=== PATIENT | female | born 1935 | race Caucasian/White ===

== ENCOUNTER 2017-06-30 07:25 | Emergency (ER) | payer MEDICARE ==
[2017-06-30] MEDS ORDERED: ONDANSETRON PF 4 MG/2 ML VIAL. (07:58)
[2017-06-30] MEDS: ONDANSETRON ODT 4 MG TAB.RAPDIS. PO (08:00)
[2017-06-30] MEDS: ONDANSETRON PF 4 MG/2 ML VIAL. IV (08:06)
[2017-06-30 08:22] LABS: ISTAT INR 3.1 (0.9-1.1); ISTAT PT 35.1 Sec (10.0-14.0)
[2017-06-30] MEDS: IV NORMAL SALINE 1000ML BAG 1,000 ML IV ×2 (08:25→08:41)
[2017-06-30] MEDS: PANTOPRAZOLE IV PUSH 40 MG VIAL. IVP (08:25)
[2017-06-30 08:26] LABS: ADD MAN DIFF? NO
[2017-06-30 08:32] LABS: BASO # 0.1 x10^3/uL (0.0-0.2); BASO % 1 % (0-3); EOS # 0.1 x10^3/uL (0.0-0.7); EOS % 1 % (0-3); HEMATOCRIT 36.2 % (36.0-47.0); HEMOGLOBIN 12.1 g/dL (12.0-15.5); LYMPH # 2.6 x10^3/uL (1.0-4.8); LYMPH % 26 % (24-48); MEAN CORPUSCULAR HEMOGLOBIN 30 pg (25-35); MEAN CORPUSCULAR HGB CONC 33 g/dL (31-37); MEAN CORPUSCULAR VOLUME 90 fL (79-100); MONO % 10 % (0-9); NEUT # 6.3 x10^3uL (1.8-7.7); NEUT % 63 % (31-73); PLATELET COUNT 300 x10^3/uL (140-400); RED BLOOD COUNT 4.04 x10^6/uL (3.50-5.40); RED CELL DISTRIBUTION WIDTH 14.9 % (11.5-14.5); WHITE BLOOD COUNT 10.1 x10^3/uL (4.0-11.0)
[2017-06-30 08:37] LABS: ANION GAP 9 (6-14); BLOOD UREA NITROGEN 50 mg/dL (7-20); BUN/CREATININE RATIO 56 (6-20); CALCIUM 8.6 mg/dL (8.5-10.1); CARBON DIOXIDE 27 mmol/L (21-32); CHLORIDE 107 mmol/L (98-107); CREATININE 0.9 mg/dL (0.6-1.0); GFR 59.8; GLUCOSE 167 mg/dL (70-99); POTASSIUM 5.2 mmol/L (3.5-5.1); SODIUM 143 mmol/L (136-145)
[2017-06-30 08:37] LABS: LIPASE 83 U/L (73-393)
[2017-06-30] MEDS: PANTOPRAZOLE SODIUM IV DRIP 80 MG in IV NORMAL SALINE 100ML 100 ML IV (08:41)
[2017-06-30 08:43] LABS: ALBUMIN/GLOBULIN RATIO 0.9 (1.0-1.7); ALK PHOS 82 U/L (46-116); ALT (SGPT) 16 U/L (14-59); AST (SGOT) 16 U/L (15-37); TOTAL BILIRUBIN 0.7 mg/dL (0.2-1.0); TOTAL PROTEIN 6.5 g/dL (6.4-8.2)
[2017-06-30 08:45] LABS: FECAL OB PT NEGATIVE (NEG); NEG OBC FOB NEG
[2017-06-30 08:45] LABS: LACTIC ACID 2.1 mmol/L (0.4-2.0)
[2017-06-30 08:46] LABS: POS OBC FOB POS
[2017-06-30] MEDS: IV RINGERS,LACTATED 500ML 500 ML IV (09:00)
[2017-06-30 09:35] LABS: FECAL OB PT NEGATIVE (NEG); NEG OBC FOB NEG; POS OBC FOB POS
== END 2017-06-30 09:55 | disposition short-term general hospital (02) ==
LOC: ER 07:25
DX: K92.2 Gastrointestinal hemorrhage, unspecified (principal); Z86.718 Personal history of other venous thrombosis and embolism; Z85.3 Personal history of malignant neoplasm of breast; Z90.49 Acquired absence of other specified parts of digestive tract; G89.29 Other chronic pain; Z90.710 Acquired absence of both cervix and uterus; Z90.722 Acquired absence of ovaries, bilateral; Z98.890 Other specified postprocedural states; Z88.0 Allergy status to penicillin; Z91.040 Latex allergy status
CPT/HCPCS: 36415; 80053; 82274; 83605; 83690; 85025; 85610; 93005; 96365; 96375; 99285-25; 99291-25; C9113; J2405; J7030; J7120